=== PATIENT | male | born 1995 | race Caucasian/White ===

== ENCOUNTER 2016-09-23 15:08 | Emergency (ER) | payer OTHER ==
[2016-09-23 15:19] VITALS: BP 133/88
[2016-09-23] MEDS ORDERED: Flumazenil 0.1 m/mL 5mL Vial IVP ONE ×2 (15:29→16:13)
[2016-09-23] MEDS: Flumazenil 0.1 m/mL 5mL Vial IVP STA ×2 (15:34→16:17)
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
[2016-09-23 15:42] LABS: % EOSINOPHILS 0.7 % (0.0-5.0); % LYMPHOCYTES 45.3 % (20.0-50.0); % MONOCYTES 6.1 % (2.0-10.0); % NEUTROPHILS 47.9 % (40.0-80.0); HEMATOCRIT 47.1 % (39.0-49.0); HEMOGLOBIN 15.5 gm/dL (13.2-17.3); MEAN CELL VOLUME 89.2 fl (80-99); MEAN CORPUSCULAR HEMOGLOBIN 29.4 pg (26.0-30.0); NEUTROPHILE ABSOLUTE 2.7 Th/cmm (1.8-8.0); PLATELET COUNT 166 Th/cmm (150-400); RED BLOOD COUNT 5.28 Mil/cmm (4.30-5.70); RED CELL DISTRIBUTION WIDTH 11.7 % (11.5-20.0); WHITE BLOOD COUNT 5.4 Th/cmm (4.8-10.8)
[2016-09-23 15:56] LABS: INR 1.06 (0.5-1.4)
[2016-09-23 15:57] LABS: CHOLESTEROL 139 mg/dL (<200); TRIGLYCERIDES 62 mg/dL (<150)
[2016-09-23 15:59] LABS: ALKALINE PHOSPHATASE 77 U/L (34-104); ANION GAP 9.1 (7.0-16.0); BILIRUBIN,TOTAL 0.9 mg/dL (0.3-1.0); BUN - UREA NITROGEN 11 mg/dL (7-25); BUN/CREATININE RATIO 12.2; CALCIUM SERUM 10.4 mg/dL (8.6-10.3); CHLORIDE 101 mEq/L (98-107); CREATININE - SERUM 0.9 mg/dL (0.7-1.3); GLUCOSE 102 mg/dL (70-105); POTASSIUM SERUM 3.1 mEq/L (3.5-5.1); SGOT 16 U/L (13-39); SGPT/ALT 12 U/L (7-52); SODIUM SERUM 135 mEq/L (136-145)
[2016-09-23] MEDS ORDERED: Potassium Chloride Elixir 20 mEq /15 mL UDC ONE (16:19)
[2016-09-23] MEDS: Potassium Chloride 20 mEq ER Tab PO ONE (16:20)
[2016-09-23 16:37] LABS: URINE COLOR YELLOW
[2016-09-23 16:38] LABS: URINE BACTERIA OCCASIONAL /hpf (NONE SEEN); URINE BILIRUBIN NEGATIVE (NEGATIVE); URINE BLOOD NEGATIVE (NEGATIVE); URINE EPITHELIAL CELLS RARE /lpf (FEW); URINE GLUCOSE (UA) NEGATIVE (NEGATIVE); URINE KETONE NEGATIVE (NEGATIVE); URINE PROTEIN TRACE mg/dL (NEGATIVE); URINE RBC NONE SEEN /hpf (0-5); URINE UROBILINOGEN 0.2 E.U./dL (0.2 - 1.0); URINE WBC 0-2 /hpf (0-5)
[2016-09-23 16:54] LABS: AMPHETAMINE URINE NEGATIVE (NEGATIVE); BARBITURATES URINE NEGATIVE (NEGATIVE); METHADONE URINE NEGATIVE (NEGATIVE)
== END 2016-09-23 17:30 | disposition home or self-care (01) ==
LOC: ER 15:08
DX: F19.10 Other psychoactive substance abuse, uncomplicated (principal); F17.200 Nicotine dependence, unspecified, uncomplicated
CPT/HCPCS: 36415-UA; 80053-TC; 80061-TC; 81001-TC; 84443-TC; 84484-TC; 85025-TC; 85610-TC; 86592-TC; 90779; 96374; 96376; Z7502